=== PATIENT | male | born 1960 | race Caucasian/White ===

== ENCOUNTER 2019-12-07 03:15 | Outpatient (CLI) | payer OTHER, SELFPAY ==
[2019-12-07 20:03] LABS: SARS-CoV-2 RNA PCR Negative
== END 2019-12-07 03:16 | disposition home or self-care (01) ==
LOC: ANHCOVIDDT 03:15
PROVIDERS: Visit Provider Internal Medicine Gastroenterology
DX: Z01.812 Encounter for preprocedural laboratory examination (principal); Z20.828 Contact with and (suspected) exposure to other viral communicable diseases
CPT/HCPCS: 87635; C9803; U0003

== ENCOUNTER 2019-12-09 01:05 | Day surgery (SDC) | payer OTHER, SELFPAY ==
[2019-12-02 13:58] VITALS: BMI 26.7
[2019-12-09] MEDS: LACTATED RINGERS 1,000 ML 150 ML IV CONT (10:10)
[2019-12-09 10:12] VITALS: BP 155/75; PULSE 66; RESP 18; TEMP 36.4; O2SAT 99; BMI 25.9
--- NOTE | 2019-12-09 10:28 | P.HP_ITS ---
History of Present Illness History of Present Illness Consent: Risks, benefits, and alternatives have been discussed and questions answered. Patient agrees to proceed with procedure. Chief complaint: Neoplasm Screening Narrative: Taz Smith is a 59 year old W male referred for screening colonoscopy. Patient is asymptomatic and there is no family history of colon cancer. Patient's last colonoscopy was 10 years ago. [facility] Past Medical History Medical History Controlled type 1 diabetes mellitus with hyperglycemia Dyslipidemia High blood pressure Surgical History Surgical History History of appendectomy Social History Social History Smoking packs per day: 3 Smoking cigarettes per day: 60.0 Years smoked: 20 Smoking pack-years: 60.00 Smoking status: Former smoker Alcohol intake: current Alcohol use details: 36 beers per week Living arrangements: with family Gender identity (if verbalized by the patient): Male Spiritual care concerns: No Meds Home Medications and Allergies Home Medications Medication Instructions Recorded Confirmed Type hydrochlorothiazide 12.5 mg tablet 12.5 mg PO DAILY 03/31/19 12/02/19 History insulin aspart U-100 100 unit/mL See Rx Instructions .ROUTE .COMPLEX 03/31/19 12/02/19 History subcutaneous solution sertraline 50 mg tablet 50 mg PO DAILY 03/31/19 12/02/19 History spironolactone 25 mg tablet 25 mg PO DAILY 03/31/19 12/02/19 History subcutaneous insulin pump #1 each 03/31/19 03/31/19 History glucagon HCl 1 mg solution for 1 mg SUB-Q ONCE PRN #1 each 10/13/19 12/02/19 Rx injection cholecalciferol (vitamin D3) 25 mcg PO DAILY 12/02/19 12/02/19 History [Vitamin D3] lisinopril 20 mg PO DAILY 12/02/19 12/02/19 History simvastatin 20 mg PO DAILY 12/02/19 12/02/19 History Allergies Allergy/AdvReac Type Severity Reaction Status Date / Time No Known Allergies Verified 12/09/19 10:02 Vital Signs Vital Signs - 24 hr 12/09/19 10:12 Temperature 36.4 C L Pulse Rate 66 Respiratory Rate 18 Blood Pressure 155/75 H Pulse Oximetry 99 Exam Const: Orientation/consciousness: patient oriented x3 Resp: Auscultation: clear to auscultation bilaterally Cardio: Rate: regular rate Rhythm: regular rhythm Heart sounds: no murmurs GI: GI Palp: Yes Soft to palpation, No Tenderness to palpation present (GI), Yes No hepatosplenomegaly present and No Palpable mass present Auscultation: normal bowel sounds Neuro: General: patient oriented x3 and no focal motor deficits Extrem: General: no pedal edema Assessment and Plan Additional Plan screening colonoscopy in average risk patient
[2019-12-09] MEDS: SIMETHICONE ORAL SUSPENSION 20 MG/0.3 ML 30 ML BOTTLE 0.6 ML IRRIGATION (11:17)
--- NOTE | 2019-12-09 11:20 | WPDANESEPPF ---
Anes - Initial Pre Proc Eval Procedure: Operation Date: 12/09/19 10:30 Proposed Procedures p Screening Colonoscopy - Wiley Love MD Date/Time: 12/09/19 11:20 Surgeon: Wiley Love MD Pre Op Diagnosis: Neoplasm Screening Patient Data Age: 59 Gender: M Height: 5 ft 11 in Weight: 84.3 kg Last Vital Signs Temp 97.5 F L 12/09/19 10:12 Pulse 66 12/09/19 10:12 Resp 18 12/09/19 10:12 BP 155/75 H 12/09/19 10:12 Pulse Ox 99 12/09/19 10:12 Allergies Allergy/AdvReac Type Severity Reaction Status Date / Time No Known Allergies Verified 12/09/19 10:02 Home Medications Medication Instructions Recorded Confirmed Type hydrochlorothiazide 12.5 mg tablet 12.5 mg PO DAILY 03/31/19 12/02/19 History insulin aspart U-100 100 unit/mL See Rx Instructions .ROUTE .COMPLEX 03/31/19 12/02/19 History subcutaneous solution sertraline 50 mg tablet 50 mg PO DAILY 03/31/19 12/02/19 History spironolactone 25 mg tablet 25 mg PO DAILY 03/31/19 12/02/19 History subcutaneous insulin pump #1 each 03/31/19 03/31/19 History glucagon HCl 1 mg solution for 1 mg SUB-Q ONCE PRN #1 each 10/13/19 12/02/19 Rx injection cholecalciferol (vitamin D3) 25 mcg PO DAILY 12/02/19 12/02/19 History [Vitamin D3] lisinopril 20 mg PO DAILY 12/02/19 12/02/19 History simvastatin 20 mg PO DAILY 12/02/19 12/02/19 History Patient hx anesthesia problems: none Family hx anesthesia problems: none PMFSH Past Medical History Medical History Controlled type 1 diabetes mellitus with hyperglycemia Dyslipidemia High blood pressure Surgical History Surgical History History of appendectomy Social History Social History Smoking packs per day: 3 Smoking cigarettes per day: 60.0 Years smoked: 20 Smoking pack-years: 60.00 Smoking status: Former smoker Alcohol intake: current Alcohol use details: 36 beers per week Living arrangements: with family Gender identity (if verbalized by the patient): Male Spiritual care concerns: No Anes - Eval Final PreProcedure Day of Procedure 12/09/19 11:20 Patient weight: normal Heart: regular rate and rhythm Lungs: clear to auscultation Airway: Mallampati scale class II Neurological: alert and oriented Last oral intake: >/= 8 hours ASA classification: II Emergent: no Anesthetic plan: proceed Anesthesia type and monitoring: general GIVS and standard monitoring Informed Consent: The patient's anesthetic plan and its attendant risks and benefits were discussed with the patient/family/POA. Questions were solicited and answers provided to the satisfaction of the patient/family/POA.
[2019-12-09 11:33] VITALS: BP 117/61; PULSE 59; RESP 16; O2SAT 94
[2019-12-09 11:43] VITALS: BP 109/68; PULSE 62; RESP 18; O2SAT 95
[2019-12-09 11:53] VITALS: BP 132/74; PULSE 55; RESP 20; O2SAT 97
== END 2019-12-09 11:57 | disposition home or self-care (01) ==
PROVIDERS: Visit Provider Internal Medicine Gastroenterology
PROC: 0DJD8ZZ Inspection of Lower Intestinal Tract, Via Natural or Artificial Opening Endoscopic (ICD-10-PCS; CPT 45378; principal; 2019-12-09 10:30)
DX: Z12.11 Encounter for screening for malignant neoplasm of colon (principal); E10.9 Type 1 diabetes mellitus without complications; I10 Essential (primary) hypertension; E78.5 Hyperlipidemia, unspecified; Z96.41 Presence of insulin pump (external) (internal); Z79.4 Long term (current) use of insulin; Z87.891 Personal history of nicotine dependence
CPT/HCPCS: 45378; J2704; J7120

== ENCOUNTER 2020-06-29 12:48 | Outpatient (CLI) | payer OTHER, SELFPAY ==
--- NOTE | ~2020-06-29 | US_ITS ---
EXAMINATION: US FNA w image guidance DATE: 06/29/2020 13:40 INDICATION: Nontoxic single thyroid nodule. TECHNIQUE: The procedure and its benefits and risks were discussed with the patient. Risks specifically discusse d included bleeding. The patient verbalized understanding of the risks and agreed to proceed. The nec k was prepped and draped in the usual sterile manner. 1% lidocaine was used for local anesthesia. 5 passes were made with a 25G needle into the lesion under ultrasound guidance. There were no immedia te complications. The patient understood to call the ordering physician for results after a week and a half and verbalized that understanding. FINDINGS: Grayscale ultrasound images demonstrate needles advanced into a 4.5 cm left thyroid nodule for biopsy . IMPRESSION: 1. Ultrasound-guided fine needle aspiration of a left thyroid nodule. Reviewed, dictated and finalized at location A.
== END 2020-06-29 12:49 | disposition home or self-care (01) ==
PROVIDERS: Visit Provider Internal Medicine Endocrinology, Diabetes & Metabolism
DX: E04.1 Nontoxic single thyroid nodule (principal)
CPT/HCPCS: 10005; 88173; 88305

== ENCOUNTER 2022-04-26 10:02 | Outpatient (CLI) | payer OTHER, SELFPAY ==
--- NOTE | ~2022-04-26 | US_ITS ---
EXAMINATION: US thyroid DATE: 04/26/2022 11:16 INDICATION: Left thyroid nodule. TECHNIQUE: Multiple ultrasound images of the thyroid were obtained. COMPARISON: Ultrasound 06/29/2020 FINDINGS: The right thyroid lobe measures 5.6 x 1.7 x 1.3 cm. The left thyroid lobe measures 7.1 x 4.5 x 3.8 c m. In the left thyroid lobe, there is a 5.1 cm solid, hypoechoic, wider than tall nodule with smooth margin, punctate echogenic foci, and macrocalcification (TI-RADS TR5). IMPRESSION: 1. Left thyroid nodule, stable from 06/29/2020 when biopsy was benign. Reviewed, dictated and finalized at location A. MASKER
== END 2022-04-26 10:03 | disposition home or self-care (01) ==
LOC: ANHIMG 10:03
PROVIDERS: Visit Provider Nurse Practitioner Family
DX: E04.1 Nontoxic single thyroid nodule (principal)
CPT/HCPCS: 76536

== ENCOUNTER 2024-01-05 07:22 | Outpatient (CLI) | payer MEDICARE, OTHER, SELFPAY ==
--- NOTE | ~2024-01-05 | NM_ITS ---
EXAMINATION: NM stress w perf spect multi DATE: 01/05/2024 10:17 INDICATION: Other forms of dyspnea TECHNIQUE: Rest images were obtained following intravenous administration of 9.8 mCi Tc99m tetrofosmi n ([place]). The patient performed an exercise activity. At peak exercise, 30.1 mCi Tc99m tetrofosmin (Myoview) was administered intravenously, and stress images were obtained. Data was reconstructed in to short axis and horizontal and vertical long axis SPECT images. Gated SPECT images were also obtain ed. COMPARISON: None. FINDINGS: There is normal left ventricular perfusion without definite evidence of reversible or fixed perfusion abnormality to suggest ischemia or infarction. There is normal left ventricular chamber size, wall motion and ejection fraction. Left ventricular ejection fraction measures 61%. IMPRESSION: 1. Normal myocardial perfusion at rest and during stress. 2. Left ventricular ejection fraction measuring 61%. Reviewed, dictated and finalized at location A.
--- NOTE | 2024-01-05 07:55 | ECHO_ITS ---
Patient Info Name: Taz Smith Age: 63 years : 1960 Gender: Male Ht: 70 in Wt: 170 lbs BSA: 1.96 m2 HR: 54 bpm BP: 127 / 67 mmHg Technical Quality: Good Exam Date: 01/05/2024 8:09 AM Exam Location: Echo Lab Patient Status: Outpatient Admit Date: 01/05/2024 Staff Ordering Physician: Prasanna Sharma DO Sales Account Leader: Yeni Zaldivar RDCS Attending Provider: Prasanna Sharma DO Referring Physician: Zachary WHITLOCK; Exam Type: CA echo doppler color flow Study Info Indications R06.09 - Other forms of dyspnea Complete two-dimensional, color flow and Doppler transthoracic echocardiogram is performed. Strain analysis performed. Summary 1. Complete two-dimensional, color flow and Doppler transthoracic echocardiogram is performed. 2. Left ventricular chamber dimension is mildly enlarged. 3. Left ventricular systolic function is normal, estimated at 60-65%. 4. The left ventricular diastolic function is abnormal. 5. E/e' 11 is mildly elevated. 6. Global longitudinal strain is normal at -18.3%. 7. Left atrial chamber dimension is mildly enlarged. 8. Right atrial chamber dimension is mildly enlarged. 9. The mitral valve has mildly calcified annulus. 10. There is mild mitral valve regurgitation. 11. There is trace tricuspid valve regurgitation. 12. No pulmonary hypertension, estimated pulmonary arterial systolic pressure is 38 mmHg. 13. There is trace pulmonic regurgitation. Left Ventricle E/e' 11 is mildly elevated. Global longitudinal strain is normal at -18.3%. Left ventricular chamber dimension is mildly enlarged. Left ventricular systolic function is normal, estimated at 60-65%. The left ventricular diastolic function is abnormal. Right Ventricle Right ventricular systolic function is normal and with normal TAPSE 2.4 cm. Right ventricular chamber dimension is normal. Left Atria Left atrial chamber dimension is mildly enlarged. Right Atria Right atrial chamber dimension is mildly enlarged. Aortic Valve The aortic valve is trileaflet. There is no aortic valve stenosis. There is no aortic valve regurgitation. Pulmonic Valve There is trace pulmonic regurgitation. Mitral Valve The mitral valve has mildly calcified annulus. There is no mitral valve stenosis. There is mild mitral valve regurgitation. Tricuspid Valve There is trace tricuspid valve regurgitation. No pulmonary hypertension, estimated pulmonary arterial systolic pressure is 38 mmHg. Pericardium/Pleural There is no pericardial effusion. Inferior Vena Cava Normal inferior vena cava with >50% collapse upon inspiration consistent with normal right atrial pressure, 5 mmHg. Aorta The aortic root size at the sinus of Valsalva is normal. Left Ventricular Outflow Tract Name Value Normal LVOT 2D LVOT Diameter 2.02 cm LVOT Doppler LVOT Peak Gradient 4 mmHg LVOT Mean Gradient 3 mmHg LVOT VTI 27.51 cm LVOT VTI/AV VTI Ratio 0.78 LVOT Stroke Volume 88.09 ml LVOT CO 5.54 l/min LVOT CI 2.83 L/min/m2 Pulmonic Valve
--- NOTE | 2024-01-05 07:55 | EST_ITS ---
Patient Info Name: Taz Smith Age: 63 years : 1960 Gender: Male Ht: 70 in Wt: 170 lbs BSA: 1.96 m2 HR: 50 bpm BP: 124 / 52 mmHg Exam Date: 01/05/2024 9:16 AM Exam Location: Echo Lab Patient Status: Outpatient Admit Date: 01/05/2024 Staff Ordering Physician: Prasanna Sharma DO Attending Provider: Prasanna Sharma DO Exercise Technologist: Silva Dockery RDCS Exercise Physician: Prasanna Sharma DO Exam Type: CA stress test treadmill w NM Study Info A nuclear stress test was performed. Summary 1. 1. Negative Parth exercise stress test for ischemic ST changes by ECG criteria. However, he achieved only 77% MPHR for age group which reduces sensitivity of the test. 2. 2. Good functional capacity, achieving 9.8 METs of workload. 3. 3. Mild chronotropic incompetence, achieving HR of 124 bpm. 4. 4. Appropriate HR recovery at 1 minute post exercise. 5. 5. Nuclear scan to follow and will be reported separately. Please correlate with it. 6. 6. Patient informed of the above results. Protocol: Parth Stress ECG Details Stage: REST Duration (min): 4 min : 24 sec Speed (mph): 0.0 Grade (%): 0 HR (bpm): 51 SBP (mmHg): 124 DBP (mmHg): 52 METS: --- Stage: REST Duration (min): 17 min : 43 sec Speed (mph): 0.0 Grade (%): 0 HR (bpm): 56 SBP (mmHg): 124 DBP (mmHg): 52 METS: --- Stage: STAGE 1 Duration (min): 1 min : 0 sec Speed (mph): 1.7 Grade (%): 10 HR (bpm): 73 SBP (mmHg): 124 DBP (mmHg): 52 METS: --- Stage: STAGE 1 Duration (min): 2 min : 0 sec Speed (mph): 1.7 Grade (%): 10 HR (bpm): 88 SBP (mmHg): 124 DBP (mmHg): 52 METS: --- Stage: STAGE 1 Duration (min): 3 min : 0 sec Speed (mph): 1.7 Grade (%): 10 HR (bpm): 92 SBP (mmHg): 162 DBP (mmHg): 53 METS: --- Stage: STAGE 2 Duration (min): 1 min : 0 sec Speed (mph): 2.5 Grade (%): 12 HR (bpm): 96 SBP (mmHg): 162 DBP (mmHg): 53 METS: --- Stage: STAGE 2 Duration (min): 2 min : 0 sec Speed (mph): 2.5 Grade (%): 12 HR (bpm): 103 SBP (mmHg): 174 DBP (mmHg): 56 METS: --- Stage: STAGE 2 Duration (min): 3 min : 0 sec Speed (mph): 2.5 Grade (%): 12 HR (bpm): 108 SBP (mmHg): 174 DBP (mmHg): 56 METS: --- Stage: STAGE 3 Duration (min): 1 min : 0 sec Speed (mph): 3.4 Grade (%): 14 HR (bpm): 112 SBP (mmHg): 181 DBP (mmHg): 72 METS: --- Stage: STAGE 3 Duration (min): 1 min : 35 sec Speed (mph): 3.4 Grade (%): 14 HR (bpm): 118 SBP (mmHg): 181 DBP (mmHg): 72 METS: --- Stage: RECOVERY Duration (min): 0 min : 24 sec Speed (mph): 0.0 Grade (%): 0 HR (bpm): 116 SBP (mmHg): 181 DBP (mmHg): 72 METS: --- Stage: RECOVERY Duration (min): 1 min : 24 sec Speed (mph): 0.0 Grade (%): 0 HR (bpm): 98 SBP (mmHg): 181 DBP (mmHg): 72 METS: --- Stage: RECOVERY Duration (min): 2 min : 24 sec Speed (mph): 0.0 Grade (%):
== END 2024-01-05 07:23 | disposition home or self-care (01) ==
PROVIDERS: Visit Provider Internal Medicine Cardiovascular Disease
DX: R06.09 Other forms of dyspnea (principal); I34.0 Nonrheumatic mitral (valve) insufficiency
CPT/HCPCS: 78452; 93017; 93306; A9502